=== PATIENT | female | born 1975 | race Caucasian/White ===

== ENCOUNTER → 2018-04-22 | Outpatient (CLI) | payer BC, OTHER ==
--- NOTE | 2018-04-22 11:46 | Diagnostic Imaging Report ---
INDICATION: Routine screening. COMPARISON: 03/24/2016 and 03/29/2013. TECHNIQUE: 2D and 3D bilateral screening mammography was performed with CAD. FINDINGS: Bilateral breast implants are again noted. The implant contours are smooth. Both breasts remain heterogeneously dense, limiting the sensitivity of mammography. No dominant mass or malignant appearing microcalcifications are seen. The axillae are unremarkable. IMPRESSION: No mammographic features suspicious for malignancy are identified. ACR BI-RADS Category 2: Benign findings. Result letter will be mailed to the patient. Note: At least 10% of breast cancer is not imaged by mammography. Dictated by: Dictated on workstation # [id number]
== END ==
LOC: RAD 08:26
PROVIDERS: ATTEND Obstetrics & Gynecology
DX: Z12.31 Encounter for screening mammogram for malignant neoplasm of breast (principal)
CPT/HCPCS: 77067

== ENCOUNTER 2021-07-28 14:17 | Emergency (ER) | payer BC ==
[~2021-07-28] VITALS: Ht 157 cm; Wt 56.6 kg
[2021-07-28] MEDS ORDERED: NITROGLYCERIN 0.4 MG SL TABS BTL 25'S SL PRN (14:30)
[2021-07-28] MEDS ORDERED: ASPIRIN 81 MG CHEW (CHILDREN'S ASA) PO ONE (14:30)
[2021-07-28 14:36] VITALS: BP 156/87
--- NOTE | 2021-07-28 14:36 | ED Chest Pain ---
General Stated Complaint: CHEST PAIN/NAUSEA Source: patient Exam Limitations: no limitations History of Present Illness Date Seen by Provider: Jul 28, 2021 Time Seen by Provider: 14:20 Initial Comments Patient to the ER by private conveyance from home with chief complaint of chest pain starting from this morning after she woke up in her left chest nonradiating 5 out of 10 constant sharp. She did not take anything for it. She thought it would go away on its own. When it did not she decided to come and get checked out. She does not have any personal medical history outside of using Synthroid and borderline cholesterol. She does not smoke nor did she ever. Her father has an early onset coronary disease at age 60 with his first heart attack. She has no personal heart history. She is never had this pain before. She does not have a history of GERD or anxiety. She did not experience any nausea vomiting fever chills cough shortness of air headache or body aches. Allergies and Home Medications Allergies Coded Allergies: No Known Drug Allergies (Unverified , 07/28/21) Patient Home Medication List Home Medication List Reviewed: Yes Review of Systems Review of Systems Constitutional: No chills, No diaphoresis EENTM: No Blurred Vision, No Double Vision Respiratory: Denies Cough, Denies Shortness of Air Cardiovascular: See HPI, Chest Pain; Denies Edema, Denies Irregular Heart Rate, Denies Lightheadedness Gastrointestinal: See HPI; Denies Abdominal Pain, Denies Constipated, Denies Diarrhea, Denies Nausea Genitourinary: Denies Burning, Denies Discharge Musculoskeletal: No back pain, No joint pain Skin: no symptoms reported, see HPI All Other Systems Reviewed Negative Unless Noted: Yes Past Hossqqy-Rsbhcj-Ruompm Hx Patient Social History Tobacco Use?: No Use of E-Cig and/or Vaping dev: No Substance use?: No Physical Exam Vital Signs Vital Signs - First Documented 07/28/21 14:36 Temp 36.6 Pulse 94 Resp 18 B/P (MAP) 156/87 (110) Pulse Ox 100 Capillary Refill : Height, Weight, BMI Height: '" Weight: lbs. oz. kg; BMI Method: General Appearance: WD/WN, Anxious, Mild Distress HEENT: PERRL/EOMI, Pharynx Normal, Moist Mucous Membranes Neck: Normal Inspection, Non Tender Respiratory: Chest Non Tender, Lungs Clear, Normal Breath Sounds, No Accessory Muscle Use, No Respiratory Distress Cardiovascular: Regular Rate, Rhythm, No Edema, No Murmur, Normal Peripheral Pulses Gastrointestinal: Normal Bowel Sounds, Non Tender, Soft Extremity: Normal Capillary Refill, Normal Inspection, Non Tender, No Calf Tenderness, No Pedal Edema Neurologic/Psychiatric: Alert, Oriented x3, No Motor/Sensory Deficits; No Normal Mood/Affect (Anxious affect) Skin: Normal Color, Warm/Dry Progress/Results/Core Measures Results/Orders Lab Results Laboratory Tests Test 07/28/21 14:30 07/28/21 16:30 Range/Units White Blood Count 6.2 4.3-11.0 10^3/uL Red Blood Count 4.28 3.80-5.11 10^6/uL Hemoglobin 12.4 11.5-16.0 g/dL Hematocrit 38 35-52 % Mean Corpuscular Volume 90 80-99 fL Mean Corpuscular Hemoglobin 29 25-34 pg Mean Corpuscular Hemoglobin Concent 32 32-36 g/dL Red Cell Distribution Width 14.6 H 10.0-14.5 % Platelet Count 299 130-400 10^3/uL Mean Platelet Volume 9.9 9.0-12.2 fL Immature Granulocyte % (Auto) 0 % Neutrophils (%) (Auto) 71 42-75 % Lymphocytes (%) (Auto) 19 12-44 % Monocytes (%) (Auto) 8 0-12 % Eosinophils (%) (Auto) 1 0-10 % Basophils (%) (Auto) 1 0-10 % Neutrophils # (Auto) 4.4 1.8-7.8 X 10^3 Lymphocytes # (Auto) 1.2 1.0-4.0 X 10^3 Monocytes # (Auto) 0.5 0.0-1.0 X 10^3 Eosinophils # (Auto) 0.1 0.0-0.3 10^3/uL Basophils # (Auto) 0.0 0.0-0.1 10^3/uL Immature Granulocyte # (Auto) 0.0 0.0-0.1 10^3/uL Prothrombin Time 12.8 12.2-14.7 SEC INR Comment 0.9 0.8-1.4 Activated Partial Thromboplast Time 28 24-35 SEC Sodium Level 137 135-145 MMOL/L Potassium Level 3.5 L 3.6-5.0 MMOL/L Chloride Level 102 98-107 MMOL/L Carbon Dioxide Level 25 21-32 MMOL/L Anion Gap 10 5-14 MMOL/L Blood Urea Nitrogen 10 7-18 MG/DL Creatinine 0.79 0.60-1.30 MG/DL Estimat Glomerular Filtration Rate 78 BUN/Creatinine Ratio 13 Glucose Level 104 70-105 MG/DL Calcium Level 9.6 8.5-10.1 MG/DL Corrected Calcium 9.2 8.5-10.1 MG/DL Magnesium Level 2.2 1.6-2.4 MG/DL Total Bilirubin 0.5 0.1-1.0 MG/DL Aspartate Amino Transf (AST/SGOT) 22 5-34 U/L Alanine Aminotransferase (ALT/SGPT) 18 0-55 U/L Alkaline Phosphatase 55 40-136 U/L Myoglobin 19.8 10.0-92.0 NG/ML Troponin I < 0.028 < 0.028 <0.028 NG/ML Total Protein 8.0 6.4-8.2 GM/DL Albumin 4.5 3.2-4.5 GM/DL Lipase 39 8-78 U/L My Orders Orders - MACKENZIE,JUDY J Cbc With Automated Diff (07/28/21 14:29) Magnesium (07/28/21 14:29) Chest 1 View, Ap/Pa Only (07/28/21 14:29) Ekg Tracing (07/28/21 14:29) Comprehensive Metabolic Panel (07/28/21 14:29) Myoglobin Serum (07/28/21 14:29) Protime With Inr (07/28/21 14:29) Partial Thromboplastin Time (07/28/21 14:29) O2 (07/28/21 14:29) Monitor-Rhythm Ecg Trace Only (07/28/21 14:29) Lipid Panel (07/29/21 06:00) Ed Iv/Invasive Line Start (07/28/21 14:29) Lipase (07/28/21 14:29) Troponin I (07/28/21 14:29) Aspirin Chewable Tablet (Baby Aspirin Ch (07/28/21 14:30) Nitroglycerin 0.4 Mg Btl 25's (Nitrostat (07/28/21 14:30) Troponin I (07/28/21 16:30) Lidocaine 2% Viscous 15 Ml (Xylocaine Vi (07/28/21 16:00) Famotidine Tablet (Pepcid Tablet) (07/28/21 15:46) Antacid Suspension (Mylanta Suspension (07/28/21 16:00) Medications Given in ED Current Medications Medications Dose Ordered Sig/Shane Route Start Time Stop Time Status Last Admin Dose Admin Al Hydrox/Mg Hydrox/Simethicone 30 ml ONCE ONCE PO 07/28/21 16:00 07/28/21 16:01 DC 07/28/21 15:51 30 ML Aspirin 324 mg ONCE ONCE PO 07/28/21 14:30 07/28/21 14:31 DC 07/28/21 14:46 324 MG Lidocaine HCl 15 ml ONCE ONCE PO 07/28/21 16:00 07/28/21 16:01 DC 07/28/21 15:51 15 ML Nitroglycerin 0.4 mg NEEDED PRN SL 07/28/21 14:30 07/28/21 14:46 0.4 MG Vital Signs/I&O 07/28/21 14:36 Temp 36.6 Pulse 94 Resp 18 B/P (MAP) 156/87 (110) Pulse Ox 100 Progress Progress Note #1: Time: 14:35 Progress Note Aspirin and nitroglycerin. If this is not helpful may try GI cocktail to rule out GERD. She is not having any septic vital signs. When she came in her heart rate was 100 however as her anxiety is relieved and she is coming down her heart rate is down in the low 80s. Progress Note #2: Time: 15:48 Progress Note Patient's pain significantly improved from a 5 down to a 2 dull achy pain after the nitroglycerin. She is had no changes on her rhythm strip. We will try a GI cocktail while we are getting a delta troponin at 1630. If the delta troponin is negative we will have her follow-up with Dr. Reid. She recalls that her mother also had congestive heart failure starting in her 50s. Pain started at 8 AM this morning. 3 points HEART Pathway Score. Low risk. 0.9-1.7% 30-day MACE. Repeat troponin at 1630 and if negative, discharge home with outpatient follow-up. Progress Note #3: Time: 17:19 Progress Note Patient is pain-free. She is had no material deterioration during her ER stay. We are going to have her go home and follow-up outpatient with cardiology for further outpatient work-up. Initial ECG Impression Date: Jul 28, 2021 Initial ECG Impression Time: 14:29 Initial ECG Rate: 77 Initial ECG Rhythm: Normal Sinus Initial ECG Intervals: Normal Initial ECG Impression: Normal Initial ECG Comparisson: No Previous ECG Available Comment Normal sinus rhythm without clinically relevant ST elevation or depression. Diagnostic Imaging Diagonstic Imaging: Xray Plain Films/CT/US/NM/MRI: chest Comments [facility] [place] [place] NAME: BRYSON GRIFFIN [facility] REC#: [id number] PT STATUS: REG ER : 1975 PHYSICIAN: JUDY MANN MD ADMIT DATE: 07/28/21/ER Draft Date of Exam:07/28/21 CHEST 1 VIEW, AP/PA ONLY INDICATION: Chest pain. COMPARISON: None. FINDINGS: Single frontal view of the chest demonstrates normal heart size and pulmonary vascularity. The lungs are well aerated and clear. No large pleural effusion or pneumothorax is seen. The visualized osseous structures show no acute abnormalities. IMPRESSION: 1. No acute cardiopulmonary process. Dictated on workstation # [id number] Dict: 07/28/21 1502 Trans: 07/28/21 1504 [id number] Interpreted by: JAQUELIN YUAN MD Electronically signed by: Reviewed: Reviewed by Me Departure Impression Primary Impression: Chest pain Qualified Codes: R07.9 - Chest pain, unspecified Disposition: 01 HOME, SELF-CARE Condition: Stable Departure-Patient Inst. Decision time for Depature: 17:20 Referrals: MIKAEL REID MD, JACQUELINE S DO (PCP/Family) Primary Care Physician Patient Instructions: Chest Pain (DC) Add. Discharge Instructions: First thing in the morning call Dr. Reid, cardiology and request follow-up appointment this week if possible. Aspirin 81 mg daily until you see the sales facilitator. Promptly return to the ER for worsening chest pain, shortness of air or other worrisome symptoms. Work/School Note: Work Release Form Date Seen in the Emergency Department: Jul 28, 2021 Return to Work: Jul 31, 2021 Restrictions: No Restrictions Copy Copies To 1: MIKAEL REID MD, TITUS J Jul 28, 2021 14:36
[2021-07-28 14:45] LABS: BASOPHILS % (AUTO) 1 % (0-10); EOSINOPHILS # (AUTO) 0.1 10^3/uL (0.0-0.3); EOSINOPHILS % (AUTO) 1 % (0-10); HEMATOCRIT 38 % (35-52); HEMOGLOBIN 12.4 g/dL (11.5-16.0); LYMPHOCYTES # (AUTO) 1.2 X 10^3 (1.0-4.0); LYMPHOCYTES % (AUTO) 19 % (12-44); MEAN CORPUSCULAR HEMOGLOBIN 29 pg (25-34); MEAN CORPUSCULAR HGB CONC 32 g/dL (32-36); MEAN CORPUSCULAR VOLUME 90 fL (80-99); MEAN PLATELET VOLUME 9.9 fL (9.0-12.2); MONOCYTES # (AUTO) 0.5 X 10^3 (0.0-1.0); MONOCYTES % (AUTO) 8 % (0-12); NEUTROPHILS # (AUTO) 4.4 X 10^3 (1.8-7.8); NEUTROPHILS % (AUTO) 71 % (42-75); PLATELET COUNT 299 10^3/uL (130-400); WHITE BLOOD COUNT 6.2 10^3/uL (4.3-11.0)
--- NOTE | 2021-07-28 15:04 | Diagnostic Imaging Report ---
INDICATION: Chest pain. COMPARISON: None. FINDINGS: Single frontal view of the chest demonstrates normal heart size and pulmonary vascularity. The lungs are well aerated and clear. No large pleural effusion or pneumothorax is seen. The visualized osseous structures show no acute abnormalities. IMPRESSION: 1. No acute cardiopulmonary process. Dictated by: Dictated on workstation # [id number]
[2021-07-28 15:08] LABS: ALBUMIN 4.5 GM/DL (3.2-4.5); INR 0.9 (0.8-1.4); POTASSIUM 3.5 MMOL/L (3.6-5.0); PROTHROMBIN TIME PATIENT 12.8 SEC (12.2-14.7)
[2021-07-28 15:10] LABS: CALCIUM 9.6 MG/DL (8.5-10.1)
[2021-07-28 15:13] LABS: BILIRUBIN,TOTAL 0.5 MG/DL (0.1-1.0)
[2021-07-28 15:14] LABS: CREATININE SERUM 0.79 MG/DL (0.60-1.30)
[2021-07-28 15:17] LABS: MAGNESIUM 2.2 MG/DL (1.6-2.4)
[2021-07-28] MEDS ORDERED: FAMOTIDINE 20 MG (PEPCID) TABLET PO STA (15:46)
[2021-07-28] MEDS ORDERED: LIDOCAINE 2% VISCOUS 15 ML UDC PO ONE (16:00)
[2021-07-28] MEDS ORDERED: ANTACID SUSP 30 ML UDC (MYLANTA) PO ONE (16:00)
== END 2021-07-28 17:29 | disposition home or self-care (01) ==
LOC: EDUNIT# 14:17 → ER 14:19
DX: R07.9 Chest pain, unspecified (principal)
CPT/HCPCS: 36415; 71045; 80053; 83690; 83735; 83874; 84484; 85025; 85610; 85730; 93005; 93041

== ENCOUNTER → 2022-10-13 | Outpatient (CLI) | payer BC ==
--- NOTE | 2022-10-15 09:27 | Diagnostic Imaging Report ---
Indication: Routine screening. Comparison is made with prior mammograms from 04/11/2020 and 04/22/2018. 2-D and 3-D bilateral screening mammography was performed with CAD. Bilateral subpectoral breast implants are again noted. Implant contours remain smooth. There is no evidence of extracapsular rupture. Both breasts are heterogeneously dense, limiting the sensitivity of mammography. The parenchymal pattern is stable. No mass or malignant-appearing microcalcifications are seen. Axillae are unremarkable. IMPRESSION: BI-RADS Category 2 No mammographic features suspicious for malignancy are identified. ACR BI-RADS Category 2: Benign findings. Result letter will be mailed to the patient. Note: At least 10% of breast cancer is not imaged by mammography. Dictated by: Dictated on workstation # [id number]
== END ==
LOC: RAD 11:15
PROVIDERS: ATTEND Obstetrics & Gynecology
DX: Z12.31 Encounter for screening mammogram for malignant neoplasm of breast (principal)
CPT/HCPCS: 77063; 77067